=== PATIENT | female | born 1995 | race Caucasian/White ===

== ENCOUNTER 2017-05-29 10:47 | Inpatient (IN) | payer BC, MEDICAID ==
[2017-05-29] MEDS ORDERED: Penicillin G Potassium IV* 5,000,000 UNITS in NS 0.9% 100 ML* 100 ML IVPB ONE (11:15)
[2017-05-29 12:51] LABS: Hematocrit 36 % (35-47); Hemoglobin 12.3 g/dl (12.0-16.0); Mean Corpuscular HGB Conc 34 g/dl (31-36); Mean Corpuscular Hemoglobin 30 pg (27-31); Mean Corpuscular Volume 87 fL (80-97); Mean Platelet Volume 9 um3 (7.4-10.4); Red Blood Count 4.13 10^6/ul (4.0-5.4); Red Cell Distribution Width 14 % (10.5-15); White Blood Count 18.7 10^3/ul (3.5-10.8)
[2017-05-29 12:57] LABS: Add Diff/Slide Review? Slide Review Added; Comments Flag Yes
[2017-05-29 13:37] LABS: Immature Granulocytes 10 % (0-9); Myelocytes % 2 % (0-1); Neutrophil % 72 % (38-83); Reactive Lymph % 1 % (0-6)
[2017-05-29 13:39] LABS: RBC Morphology Normal (Normal)
[2017-05-29] MEDS ORDERED: Penicillin G Potassium IV* 2,500,000 UNITS in NS 0.9% 100 ML* 100 ML IVPB SCH (15:00)
[2017-05-29] MEDS ORDERED: OBEPIDURAL* 250 ML ONE (15:55)
[2017-05-29] MEDS ORDERED: Sodium Citrate/Citric Acid* 15 ML UDC PO PRN (16:34)
[2017-05-29] MEDS ORDERED: EPHEDrine (Pressors)* 50 MG/ML VIAL IV PUSH PRN ×2 (16:34)
[2017-05-29] MEDS ORDERED: Famotidine TAB* 20 MG PO PRN (16:34)
[2017-05-29] MEDS ORDERED: Phenylephrine IV* 40 MCG/ML 10 ML SYRINGE IV PUSH PRN ×2 (16:34)
[2017-05-29] MEDS ORDERED: OBEPIDURAL* 250 ML EPIDURAL SCH (17:00)
[2017-05-29] MEDS ORDERED: Oxytocin in LR* 20 UNITS/1,000 ML BAG IVPB ONE (18:28)
[2017-05-29] MEDS ORDERED: Acetaminophen TAB* 325 MG PO PRN (19:02)
[2017-05-29] MEDS ORDERED: Witch Hazel PAD* JAR TOPICAL PRN (19:02)
[2017-05-29] MEDS ORDERED: Dibucaine 1% 28.35 GM TUBE PR PRN (19:02)
[2017-05-29] MEDS ORDERED: Glycerin ADULT SUPP PR PRN (19:02)
[2017-05-29] MEDS ORDERED: Oxytocin in LR* 20 UNITS/1,000 ML BAG IVPB SCH (20:00)
[2017-05-29] MEDS: Ibuprofen TAB* 600 MG PO PRN (20:19)
[2017-05-29] MEDS ORDERED: Simethicone TAB* 80 MG TAB.CHEW PO SCH (21:00)
[2017-05-29] MEDS: Docusate CAP* 100 MG PO SCH (22:11)
[2017-05-29] MEDS ORDERED: Lidocaine 1% MPF* 2 ML VIAL ONE (22:41)
[2017-05-29] MEDS ORDERED: OXYTOCIN* 10 UNITS/ML 1 ML VIAL ONE (22:41)
[2017-05-30] MEDS: Ibuprofen TAB* 600 MG PO PRN ×4 (03:21→22:13)
[2017-05-30] MEDS: Docusate CAP* 100 MG PO SCH ×3 (09:38→22:13)
[2017-05-30 10:38] LABS: Hematocrit 28 % (35-47); Hemoglobin 9.7 g/dl (12.0-16.0); Mean Corpuscular HGB Conc 35 g/dl (31-36); Mean Corpuscular Hemoglobin 31 pg (27-31); Mean Corpuscular Volume 88 fL (80-97); Mean Platelet Volume 8 um3 (7.4-10.4); Red Blood Count 3.17 10^6/ul (4.0-5.4); Red Cell Distribution Width 14 % (10.5-15); White Blood Count 18.1 10^3/ul (3.5-10.8)
[2017-05-30] MEDS: Ferrous Gluconate TAB* 324 MG TAB PO SCH ×2 (11:26→22:13)
[2017-05-31 07:30] VITALS: BP 98/58
[2017-05-31] MEDS: Ferrous Gluconate TAB* 324 MG TAB PO SCH (08:32)
[2017-05-31] MEDS: Ibuprofen TAB* 600 MG PO PRN (08:32)
[2017-05-31] MEDS: Docusate CAP* 100 MG PO SCH (08:32)
--- NOTE | 2017-05-31 09:21 | PTEDU ---
Patient Name: ROLDAN GALLEGOS ROLDAN GALLEGOS selected video: BBOB: Nurturing Your Gorgeous &Growing Baby by to view on 05/31/2017 at 9:20:50 AM [id number]
== END 2017-05-31 11:44 | disposition home or self-care (01) | DRG 541 ==
LOC: MCHOBOUT 10:47 → MCHOB 11:22
PROVIDERS: ADMIT Midwife; ATTEND Midwife
PROC: 10E0XZZ Delivery of Products of Conception, External Approach (ICD-10-PCS; principal; 2017-05-29)
PROC: 10907ZC Drainage of Amniotic Fluid, Therapeutic from Products of Conception, Via Natural or Artificial Opening (ICD-10-PCS; 2017-05-29)
PROC: 4A1HXCZ Monitoring of Products of Conception, Cardiac Rate, External Approach (ICD-10-PCS; 2017-05-29)
PROC: 0KQM0ZZ Repair Perineum Muscle, Open Approach (ICD-10-PCS; 2017-05-29)
PROC: 10D17Z9 Manual Extraction of Products of Conception, Retained, Via Natural or Artificial Opening (ICD-10-PCS; 2017-05-29)
DX: O48.0 Post-term pregnancy (principal); O32.2XX0 Maternal care for transverse and oblique lie, not applicable or unspecified; O32.6XX0 Maternal care for compound presentation, not applicable or unspecified; O99.824 Streptococcus B carrier state complicating childbirth; Z37.0 Single live birth; O70.1 Second degree perineal laceration during delivery; O77.0 Labor and delivery complicated by meconium in amniotic fluid; Z3A.40 40 weeks gestation of pregnancy
CPT/HCPCS: 36415; 85025; 86850; 86900; 86901; A9270-GY; J2540; J2590

== ENCOUNTER 2019-03-07 08:57 | Emergency (ER) | payer BC, MEDICAID ==
[2019-03-07] MEDS ORDERED: NS 0.9% 1000 ML** 1,000 ML IV ONE (09:08)
[2019-03-07 09:29] LABS: Urine Appearance Cloudy; Urine Bacteria Absent (Absent); Urine Bilirubin Negative (Negative); Urine Blood 2+ (Negative); Urine Color Yellow; Urine Glucose Negative (Negative); Urine Ketones Negative (Negative); Urine Nitrite Negative (Negative); Urine Protein Negative (Negative); Urine Red Blood Cell Trace(0-2/hpf) (Absent); Urine Specific Gravity 1.019 (1.010-1.030); Urine Squamous Epithelial Cell Present (Absent); Urine Urobilinogen Negative (Negative); Urine White Blood Cell 1+(6-10/hpf) (Absent)
[2019-03-07 09:39] LABS: Hematocrit 34 % (35-47); Hemoglobin 12.1 g/dL (12.0-16.0); Mean Corpuscular HGB Conc 36 g/dL (31-36); Mean Corpuscular Hemoglobin 31 pg (27-31); Mean Corpuscular Volume 86 fL (80-97); Mean Platelet Volume 7.7 fL (7.4-10.4); Platelet Count 236 10^3/uL (150-450); Red Blood Count 3.96 10^6 /uL (3.70-4.87); Red Cell Distribution Width 14 % (10-15); White Blood Count 17.5 10^3/uL (3.5-10.8)
[2019-03-07 09:56] LABS: Albumin 3.5 g/dL (3.2-5.2); Albumin/Globulin Ratio 1.3 (1-3); Calcium 8.8 mg/dL (8.6-10.3); EGFR African American 181.9 (>60); EGFR Non-African American 150.3 (>60); Globulin 2.6 g/dL (2-4); Magnesium 1.7 mg/dL (1.9-2.7); Total Bilirubin 0.4 mg/dL (0.2-1.0); Total Protein 6.1 g/dL (6.4-8.9)
[2019-03-07 10:00] LABS: ABS Monocytes 0.7 10^3/ul (0-0.8); ABS Neutrophils 14.7 10^3/ul (1.5-7.7); Eosinophil % 0.2 %; Lymphocyte % 11.5 %
[2019-03-07 12:07] VITALS: BP 101/57
--- NOTE | 2019-03-07 12:15 | ED ---
- HPI Summary HPI Summary: This is a 23-year-old female presenting to the ED 19 weeks with bilateral lower abdominal cramping and spotting. She states she did pass one clot. This is been occurring for approximately 5-6 days. She was seen by OB/ PAIN MANAGEMENT NURSE link trainer mechanic who rx her Flagyl for BV. She had positive BV 4 days ago when seen by link trainer mechanic. She continues to have lower abdominal cramping and called link trainer mechanic today who sent her here to the ED to rule out early term labor versus placenta previa versus other etiology. Patient states symptoms are not better or worse compared to 45 days ago, however remained consistent. Denies any nausea or vomiting. Denies any urinary symptoms or back pain. Patient has been eating and drinking well. She endorses the spotting as brown with 1 small clot. - History of Current Complaint Chief Complaint: EDOBProblems Stated Complaint: 19 WEEKS PREG PAIN AND BLEEDING Time Seen by Provider: 03/07/19 09:09 Hx Obtained From: Patient Chief Complaint: Concern for Embryonic Dem, Vaginal Bleeding Onset/Duration: Started Days Ago Timing: Constant Severity: Moderate Current Severity: Moderate Pain Intensity: 0 Location of Pain: Diffuse Character: None Associated Signs and Symptoms: Positive: Negative - Assessment Hx Now: No SAB: 2 IEA: 0 Hx Hysterectomy: No - Additional Pertinent History Maternal Blood Type and Rh: O Positive - Allergies/Home Medications Allergies/Adverse Reactions: Allergies Allergy/AdvReac Type Severity Reaction Status Date / Time No Known Allergies Allergy Verified 05/29/17 12:22 Home Medications: Home Medications Vitamin TAB* 1 tab PO DAILY 03/07/19 [History Confirmed 03/07/19] metroNIDAZOLE VAGINAL 0.75%* 1 applic VAGINAL BEDTIME 03/07/19 [History Confirmed 03/07/19] PMH/Surg Hx/FS Hx/Imm Hx Previously Healthy: Yes Respiratory History: Denies: Hx Asthma Infectious Disease History: No Infectious Disease History: Denies: Traveled Outside the [place] in Last 30 Days - Family History Known Family History: Positive: Cardiac Disease, Hypertension, Diabetes - Social History Occupation: Employed Full-time Lives: With Family Alcohol Use: None Hx Substance Use: No Substance Use Type: Reports: None Hx Tobacco Use: No Smoking Status (MU): Never Smoked Tobacco Have You Smoked in the Last Year: No Review of Systems Constitutional: Negative Negative: Fever, Chills, Fatigue, Skin Diaphoresis Negative: Palpitations, Chest Pain Negative: Shortness Of Breath, Cough Positive: Abdominal Pain Genitourinary: Negative Positive: no symptoms reported, see HPI Negative: Arthralgia, Myalgia Skin: Negative All Other Systems Reviewed And Are Negative: Yes Physical Exam - Physical Exam Triage Information Reviewed: Yes Vital Signs Reviewed: Yes Appearance: Positive: Well-Appearing, Well-Nourished Skin: Positive: Warm, Skin Color Reflects Adequate Perfusion Head/Face: Positive: Normal Head/Face Inspection Eyes: Positive: EOMI, AMY, Conjunctiva Clear Neck: Positive: No Lymphadenopathy Respiratory/Lung Sounds: Positive: Clear to Auscultation, Breath Sounds Present Cardiovascular: Positive: RRR, Pulses are Symmetrical in both Upper and Lower Extremities Musculoskeletal: Positive: Normal, Strength/ROM Intact Neurological: Positive: Speech Normal Psychiatric: Positive: Affect/Mood Appropriate AVPU Assessment: Alert Diagnostics - Vital Signs Vital Signs Temp Pulse Resp BP Pulse Ox 03/07/19 12:06 97.8 F 87 16 101/57 97 03/07/19 10:00 89 100 03/07/19 09:52 83 95/60 100 03/07/19 08:58 98.1 F 99 18 96/67 99 - Laboratory Lab Results: Lab Results 03/07/19 03/07/19 03/07/19 Range/Units 09:10 09:30 09:30 WBC 17.5 H (3.5-10.8) 10^3/uL RBC 3.96 (3.70-4.87) 10^6 /uL Hgb 12.1 (12.0-16.0) g/dL Hct 34 L (35-47) % MCV 86 (80-97) fL MCH 31 (27-31) pg MCHC 36 (31-36) g/dL RDW 14 (10-15) % Plt Count 236 (150-450) 10^3/uL MPV 7.7 (7.4-10.4) fL Neut % (Auto) 83.9 % Lymph % (Auto) 11.5 % Morris % (Auto) 4.2 % Eos % (Auto) 0.2 % Baso % (Auto) 0.2 % Absolute Neuts (auto) 14.7 H (1.5-7.7) 10^3/ul Absolute Lymphs (auto) 2.0 (1.0-4.8) 10^3/ul Absolute Monos (auto) 0.7 (0-0.8) 10^3/ul Absolute Eos (auto) 0.0 (0-0.6) 10^3/ul Absolute Basos (auto) 0.0 (0-0.2) 10^3/ul Absolute Nucleated RBC 0.0 10^3/ul Nucleated RBC % 0.0 Sodium 135 (135-145) mmol/L Potassium 4.0 (3.5-5.0) mmol/L Chloride 105 (101-111) mmol/L Carbon Dioxide 27 (22-32) mmol/L Anion Gap 3 (2-11) mmol/L BUN 8 (6-24) mg/dL Creatinine 0.50 L (0.51-0.95) mg/dL Est GFR ( Amer) 181.9 (>60) Est GFR (Non-Af Amer) 150.3 (>60) BUN/Creatinine Ratio 16.0 (8-20) Glucose 80 (70-100) mg/dL Calcium 8.8 (8.6-10.3) mg/dL Magnesium 1.7 L (1.9-2.7) mg/dL Total Bilirubin 0.40 (0.2-1.0) mg/dL AST 13 (13-39) U/L ALT 11 (7-52) U/L Alkaline Phosphatase 105 H (34-104) U/L Total Protein 6.1 L (6.4-8.9) g/dL Albumin 3.5 (3.2-5.2) g/dL Globulin 2.6 (2-4) g/dL Albumin/Globulin Ratio 1.3 (1-3) Beta HCG, Quant 68954.00 mIU/mL Urine Color Yellow Urine Appearance Cloudy Urine pH 6.0 (5-9) Ur Specific [place] 1.019 (1.010-1.030) Urine Protein Negative (Negative) Urine Ketones Negative (Negative) Urine Blood 2+ A (Negative) Urine Nitrate Negative (Negative) Urine Bilirubin Negative (Negative) Urine Urobilinogen Negative (Negative) Ur Leukocyte Esterase 1+ A (Negative) Urine WBC (Auto) 1+(6-10/hpf) A (Absent) Urine RBC (Auto) Trace(0-2/hpf) (Absent) Ur Squamous Epith Cells Present A (Absent) Urine Bacteria Absent (Absent) Urine Glucose Negative (Negative) Blood Type 03/07/19 Range/Units 09:30 WBC (3.5-10.8) 10^3/uL RBC (3.70-4.87) 10^6 /uL Hgb (12.0-16.0) g/dL Hct (35-47) % MCV (80-97) fL MCH (27-31) pg MCHC (31-36) g/dL RDW (10-15) % Plt Count (150-450) 10^3/uL MPV (7.4-10.4) fL Neut % (Auto) % Lymph % (Auto) % Morris % (Auto) % Eos % (Auto) % Baso % (Auto) % Absolute Neuts (auto) (1.5-7.7) 10^3/ul Absolute Lymphs (auto) (1.0-4.8) 10^3/ul Absolute Monos (auto) (0-0.8) 10^3/ul Absolute Eos (auto) (0-0.6) 10^3/ul Absolute Basos (auto) (0-0.2) 10^3/ul Absolute Nucleated RBC 10^3/ul Nucleated RBC % Sodium (135-145) mmol/L Potassium (3.5-5.0) mmol/L Chloride (101-111) mmol/L Carbon Dioxide (22-32) mmol/L Anion Gap (2-11) mmol/L BUN (6-24) mg/dL Creatinine (0.51-0.95) mg/dL Est GFR ( Amer) (>60) Est GFR (Non-Af Amer) (>60) BUN/Creatinine Ratio (8-20) Glucose (70-100) mg/dL Calcium (8.6-10.3) mg/dL Magnesium (1.9-2.7) mg/dL Total Bilirubin (0.2-1.0) mg/dL AST (13-39) U/L ALT (7-52) U/L Alkaline Phosphatase (34-104) U/L Total Protein (6.4-8.9) g/dL Albumin (3.2-5.2) g/dL Globulin (2-4) g/dL Albumin/Globulin Ratio (1-3) Beta HCG, Quant mIU/mL Urine Color Urine Appearance Urine pH (5-9) Ur Specific [place] (1.010-1.030) Urine Protein (Negative) Urine Ketones (Negative) Urine Blood (Negative) Urine Nitrate (Negative) Urine Bilirubin (Negative) Urine Urobilinogen (Negative) Ur Leukocyte Esterase (Negative) Urine WBC (Auto) (Absent) Urine RBC (Auto) (Absent) Ur Squamous Epith Cells (Absent) Urine Bacteria (Absent) Urine Glucose (Negative) Blood Type O Positive Result Diagrams: 03/07/19 09:30 03/07/19 09:30 Lab Statement: Any lab studies that have been ordered have been reviewed, and results considered in the medical decision making process. Course/Dx - Course Course Of Treatment: During his course of treatment, the patient is evaluated for light spotting as well as one clot which was passed. She was sent in by OB/ PAIN MANAGEMENT NURSE link trainer mechanic. States concern for placenta previa as well as early term labor. Labs obtained which are fairly unremarkable except for an elevated white count. Typical with . Denies any fevers, sweats, chills, urinary symptoms or back pain. ultrasound obtained: IMPRESSION: Single intrauterine gestation with a gestational age of 19 weeks 1 day. Estimated date of delivery is July 31, 2019. survey is unremarkable. Discussed case with DAVID Wilkinson. No other concerns at this time. Patient feeling somewhat improved and denies any worsening bleeding. She will be DC'd with abdominal pain in and will f/u with Kacie next week. - Differential Diagnosis/HQI/PQRI: Threatened , Placenta Abruption, Placenta Previa, Early - Diagnoses Provider Diagnoses: Abdominal pain affecting Discharge ED - Sign-Out/Discharge Documenting (check all that apply): Patient Departure Patient Received Moderate/Deep Sedation with Procedure: No - Discharge Plan Condition: Stable Disposition: HOME Patient Education Materials: Abdominal Pain in (ED) Referrals: Kacie Wilkinson CNM [[place] [facility]] - No Primary Care Phys,NOPCP [Primary Care Provider] - Additional Instructions: Please follow-up with your link trainer mechanic next week Call to make an appointment If any symptoms become worse, return to the ED He may try Tylenol and moist heat to the area for comfort - Billing Disposition and Condition Condition: STABLE Disposition: Home - Attestation Statements Provider Attestation: I was available for consult. This patient was seen by the NATHALY. The patient was not presented to, seen by, or examined by me. -Georgiana
== END 2019-03-07 12:06 | disposition home or self-care (01) ==
LOC: ED 08:57
DX: O26.892 Other specified pregnancy related conditions, second trimester (principal); R10.30 Lower abdominal pain, unspecified; Z3A.19 19 weeks gestation of pregnancy
CPT/HCPCS: 36415; 76815; 80053; 81003; 81015; 83735; 84702; 85025; 86900; 86901; 87086; 96360; 96361; 99282

== ENCOUNTER 2019-03-12 21:39 | Emergency (ER) | payer BC, MEDICAID ==
[2019-03-12 23:52] LABS: Hematocrit 34 % (35-47); Mean Corpuscular HGB Conc 35 g/dL (31-36); Mean Corpuscular Hemoglobin 31 pg (27-31); Mean Corpuscular Volume 87 fL (80-97); Mean Platelet Volume 7.7 fL (7.4-10.4); Platelet Count 262 10^3/uL (150-450); Red Blood Count 3.91 10^6 /uL (3.70-4.87); Red Cell Distribution Width 14 % (10-15)
[2019-03-13 00:08] LABS: Urine Appearance Cloudy; Urine Bacteria Absent (Absent); Urine Bilirubin Negative (Negative); Urine Blood 3+ (Negative); Urine Color Yellow; Urine Glucose Negative (Negative); Urine Ketones 1+ (Negative); Urine Nitrite Negative (Negative); Urine Protein Negative (Negative); Urine Red Blood Cell 3+(>10/hpf) (Absent); Urine Specific Gravity 1.005 (1.010-1.030); Urine Squamous Epithelial Cell Present (Absent); Urine Urobilinogen Negative (Negative); Urine White Blood Cell 3+(>20/hpf) (Absent)
[2019-03-13 00:09] LABS: Albumin 3.5 g/dL (3.2-5.2); Albumin/Globulin Ratio 1.3 (1-3); BUN/Creatinine Ratio 12.2 (8-20); C Reactive Protein 7.82 mg/L (<8.01); Calcium 8.9 mg/dL (8.6-10.3); EGFR African American 186.2 (>60); EGFR Non-African American 153.9 (>60); Globulin 2.6 g/dL (2-4); Magnesium 1.8 mg/dL (1.9-2.7); Potassium 3.6 mmol/L (3.5-5.0); Total Bilirubin 0.4 mg/dL (0.2-1.0); Total Protein 6.1 g/dL (6.4-8.9)
[2019-03-13 00:24] LABS: ABS Basophils 0.1 10^3/ul (0-0.2); ABS Eosinophils 0.1 10^3/ul (0-0.6); ABS Lymphocytes 2.8 10^3/ul (1.0-4.8); ABS Monocytes 0.7 10^3/ul (0-0.8); ABS Neutrophils 17.3 10^3/ul (1.5-7.7); Eosinophil % 0.3 %; Lymphocyte % 13.3 %; Nucleated Red Blood Cells % 0.1
--- NOTE | 2019-03-13 02:36 | ED ---
- HPI Summary HPI Summary: Patient with history of being 19 weeks and 5 days complains of bright red vaginal bleeding and abdominal cramping 10 days. States cramping worse today. Patient seen on 03/07 for same with ultrasound positive for IUP. Patient states also recent evaluation by [employer] 3 days ago with shortened cervix on ultrasound. Patient was started on progesterone. Denies fever, cough , sore throat, CP, SOB, N/V/D, change in urine, change in BM. Medical history is none. Abdominal surgical history is none. [employer] is Dr. Poole. . - History of Current Complaint Chief Complaint: EDOBProblems Stated Complaint: 20 WKS PREG/BLEEDING CRAMPING PER PT Time Seen by Provider: 03/12/19 23:06 Hx Obtained From: Patient Onset/Duration: Started Days Ago Timing: Constant Severity: Moderate Current Severity: Moderate Pain Intensity: 5 Location of Pain: Left Side, Right Side, Suprapubic Character: Cramping Aggravating Factors: Movement Alleviating Factors: Nothing Associated Signs and Symptoms: Positive: Vaginal Bleeding or Discharge - Assessment Hx Now: No SAB: 2 IEA: 0 Hx Hysterectomy: No - Additional Pertinent History Maternal Blood Type and Rh: O Positive - Allergies/Home Medications Allergies/Adverse Reactions: Allergies Allergy/AdvReac Type Severity Reaction Status Date / Time No Known Allergies Allergy Verified 05/29/17 12:22 Home Medications: Home Medications [place] 8 % VAGINAL DAILY 03/12/19 [History Confirmed 03/12/19] PMH/Surg Hx/FS Hx/Imm Hx Endocrine/Hematology History: Denies: Hx Anticoagulant Therapy Cardiovascular History: Denies: Hx Pacemaker/ICD Respiratory History: Denies: Hx Asthma History: Denies: Hx Dialysis Sensory History: Denies: Hx Eye Prosthesis Opthamlomology History: Denies: Hx Legally Blind EENT History: Denies: Hx Deafness Neurological History: Denies: Hx CVA - Immunization History Immunizations Up to Date: Yes Infectious Disease History: No Infectious Disease History: Denies: Traveled Outside the [place] in Last 30 Days - Family History Known Family History: Positive: Cardiac Disease, Hypertension, Diabetes - Social History Alcohol Use: None Hx Substance Use: No Substance Use Type: Reports: None Hx Tobacco Use: No Smoking Status (MU): Never Smoked Tobacco Have You Smoked in the Last Year: No Review of Systems Constitutional: Negative Eyes: Negative ENT: Negative Cardiovascular: Negative Respiratory: Negative Positive: Abdominal Pain Genitourinary: Negative Musculoskeletal: Negative Skin: Negative Neurological: Negative Psychological: Normal All Other Systems Reviewed And Are Negative: Yes Physical Exam - Summary Physical Exam Summary: Tenderness palpation of right lower quadrant, left lower quadrant and suprapubically. Upper abdominal exam unremarkable. - Physical Exam Triage Information Reviewed: Yes Vital Signs Reviewed: Yes Appearance: Positive: Well-Appearing Skin: Positive: Warm Head/Face: Positive: Normal Head/Face Inspection Eyes: Positive: Normal Neck: Positive: Supple Respiratory/Lung Sounds: Positive: Clear to Auscultation Cardiovascular: Positive: Normal Abdomen Description: Positive: Other: Musculoskeletal: Positive: Normal Neurological: Positive: Normal Psychiatric: Positive: Normal AVPU Assessment: Alert - Concha Coma Scale Eye: 4 - Spontaneous Motor: 6 - Obeys Commands Verbal: 5 - Oriented Coma Scale Total: 15 Diagnostics - Vital Signs Vital Signs Temp Pulse Resp BP Pulse Ox 03/13/19 02:23 105/64 03/13/19 02:00 89 96 03/13/19 01:53 92 105/65 96 03/12/19 21:41 97.5 F 100 18 123/74 97 - Laboratory Lab Results: Lab Results 03/12/19 03/12/19 03/12/19 Range/Units 23:47 23:47 23:52 WBC 21.0 H (3.5-10.8) 10^3/uL RBC 3.91 (3.70-4.87) 10^6 /uL Hgb 12.0 (12.0-16.0) g/dL Hct 34 L (35-47) % MCV 87 (80-97) fL MCH 31 (27-31) pg MCHC 35 (31-36) g/dL RDW 14 (10-15) % Plt Count 262 (150-450) 10^3/uL MPV 7.7 (7.4-10.4) fL Neut % (Auto) 82.6 % Lymph % (Auto) 13.3 % Isabella % (Auto) 3.5 % Eos % (Auto) 0.3 % Baso % (Auto) 0.3 % Absolute Neuts (auto) 17.3 H (1.5-7.7) 10^3/ul Absolute Lymphs (auto) 2.8 (1.0-4.8) 10^3/ul Absolute Monos (auto) 0.7 (0-0.8) 10^3/ul Absolute Eos (auto) 0.1 (0-0.6) 10^3/ul Absolute Basos (auto) 0.1 (0-0.2) 10^3/ul Absolute Nucleated RBC 0.0 10^3/ul Nucleated RBC % 0.1 Sodium 136 (135-145) mmol/L Potassium 3.6 (3.5-5.0) mmol/L Chloride 105 (101-111) mmol/L Carbon Dioxide 25 (22-32) mmol/L Anion Gap 6 (2-11) mmol/L BUN 6 (6-24) mg/dL Creatinine 0.49 L (0.51-0.95) mg/dL Est GFR ( Amer) 186.2 (>60) Est GFR (Non-Af Amer) 153.9 (>60) BUN/Creatinine Ratio 12.2 (8-20) Glucose 89 (70-100) mg/dL Calcium 8.9 (8.6-10.3) mg/dL Magnesium 1.8 L (1.9-2.7) mg/dL Total Bilirubin 0.40 (0.2-1.0) mg/dL AST 12 L (13-39) U/L ALT 13 (7-52) U/L Alkaline Phosphatase 103 (34-104) U/L C-Reactive Protein 7.82 (<8.01) mg/L Total Protein 6.1 L (6.4-8.9) g/dL Albumin 3.5 (3.2-5.2) g/dL Globulin 2.6 (2-4) g/dL Albumin/Globulin Ratio 1.3 (1-3) Urine Color Yellow Urine Appearance Cloudy Urine pH 7.0 (5-9) Ur Specific [place] 1.005 L (1.010-1.030) Urine Protein Negative (Negative) Urine Ketones 1+ A (Negative) Urine Blood 3+ A (Negative) Urine Nitrate Negative (Negative) Urine Bilirubin Negative (Negative) Urine Urobilinogen Negative (Negative) Ur Leukocyte Esterase 3+ A (Negative) Urine WBC (Auto) 3+(>20/hpf) A (Absent) Urine RBC (Auto) 3+(>10/hpf) A (Absent) Ur Squamous Epith Cells Present A (Absent) Urine Bacteria Absent (Absent) Urine Glucose Negative (Negative) Result Diagrams: 03/12/19 23:47 03/12/19 23:47 Lab Statement: Any lab studies that have been ordered have been reviewed, and results considered in the medical decision making process. Course/Dx - Course Course Of Treatment: Patient with history of being 19 weeks and 5 days complains of bright red vaginal bleeding and abdominal cramping 10 days. States cramping worse today. Patient seen on 03/07 for same with ultrasound positive for IUP. Patient states also recent evaluation by [employer] 3 days ago with shortened cervix on ultrasound. Patient was started on progesterone. Denies fever, cough, sore throat, CP, SOB, N/V/D, change in urine , change in BM. Medical history is none. Abdominal surgical history is none. [employer] is Dr. Poole. . Vital signs within normal limits. WBC 21. Labs otherwise unremarkable. heart tones 145. ultrasound positive for completely opened cervix which is U-shaped with parts extending into the widened endocervical canal. Incompetent cervix which is widely dilated containing parts. Discussed patient with [employer] roofing subcontractor Dr. Sharpe. Patient discharged to labor and delivery. - Diagnoses Provider Diagnoses: labor in second trimester Discharge ED - Sign-Out/Discharge Documenting (check all that apply): Patient Departure Patient Received Moderate/Deep Sedation with Procedure: No - Discharge Plan Condition: Fair Disposition: TRANSFER TO OB ([facility]) Referrals: No Primary Care Phys,NOPCP [Primary Care Provider] - - Billing Disposition and Condition Condition: FAIR Disposition: Transfer to OB ([facility]) - Attestation Statements Provider Attestation: I was available for consult. This patient was seen by the NATHALY. The patient was not presented to, seen by, or examined by me. Cornell Guzman MD
[2019-03-13 03:15] VITALS: BP 106/63
== END 2019-03-13 03:14 | disposition other institution (70) ==
LOC: ED 21:39
DX: O60.02 Preterm labor without delivery, second trimester (principal); Z3A.20 20 weeks gestation of pregnancy
CPT/HCPCS: 36415; 76815; 80053; 81003; 81015; 83735; 85025; 86140; 87077; 87086; 99214; 99283; G0463